=== PATIENT | male | born 1940 | race African-American/Black ===

== ENCOUNTER → 2019-11-11 | Outpatient (CLI) | payer MEDICARE, BC ==
[~2019-11-11] VITALS: Ht 172.7 cm; Wt 101.2 kg
[~2019-11-11] MED LIST: ACETAMINOPHEN325 M1 PO; ALDACTONE25 MG PO; ALLEGRA ALLERG180 MG PO; ALLOPURINOL 10100 M1 PO; ASPIR 8181 MG PO; ASPIRIN EC325 M1 PO; CARVEDILOL12.5 MG PO; CARVEDILOL3.125 MG PO; CENTRUM SILVER1 EAC2 PO; COQ-10100 MG PO; COZAAR 25 MG TA25 M2 PO; EFFIENT10 MG PO; FLOVENT HFA 4444 MCG INH; GLUCOPHAGE XR500 MG PO; GLUCOPHAGE500 MG PO; IMDUR 30 MG TAB30 M1 PO; ISOSORBIDE MONO30 M1 PO; K-DUR 20 MEQ T20 MEQ PO; KLOR-CON 1010 MEQ PO; LASIX 40 MG TAB40 M1 PO; LIPITOR40 MG PO; LOPRESSOR 50 MG50 M1 PO; METOLAZONE 2.52.5 MG PO; MEXILETINE 150150 MG PO; NITROGLYCERIN0.4 MG SUBLING; OMEPRAZOLE 20 M20 M1 PO; PACERONE 200 M200 M1 PO; PANTOPRAZOLE SO40 M1 PO; PRILOSEC20 MG PO; TAMSULOSIN HCL0.4 M1 PO; TOPROL XL50 MG PO; TRAMADOL 50 MG50 MG PO; TRICOR48 MG PO
[2019-11-11 09:44] LABS: HEMATOCRIT 39.5 % (42.0-52.0); HEMOGLOBIN 13.4 gm/dL (14.0-18.0); MCH 29.9 pg (26.0-34.0); MCHC 33.9 g/dL (28.0-37.0); MPV 7.9 fl. (7.2-11.1); RBC 4.49 mil/uL (4.50-6.00); RDW-CV 15.9 % (10.5-14.5); WBC 6.5 thou/uL (4.0-11.0)
[2019-11-11 09:52] LABS: APTT 26.7 Seconds (25.0-31.3); INR 1.1; PROTIME 11.2 Seconds (9.20-11.50)
[2019-11-11 09:54] LABS: ANION GAP 8 mmol/L (7-16); BUN 42 mg/dL (7-18); CALCIUM 9.8 mg/dL (8.5-10.1); CHLORIDE 98 mmol/L (98-107); CO2 31 mmol/L (21-32); CREATININE 2.3 mg/dL (0.6-1.3); GLUCOSE 118 mg/dL (70-99); POTASSIUM 3.1 mmol/L (3.5-5.1); SODIUM 137 mmol/L (136-145)
[2019-11-11 09:58] LABS: ALBUMIN 4.2 g/dL (3.4-5.0); ALKALINE PHOSPHATASE 82 U/L (46-116); CHOLESTEROL 136 mg/dL (<200); HDL CHOLESTEROL 44 mg/dL (>40); LDL CHOLESTEROL 57 mg/dL (<100); SERUM ASSESSMENT Clear; SGOT 24 U/L (15-37); SGPT 33 U/L (30-65); TC:HDL 3.1 Ratio (Not establshd); TOTAL BILIRUBIN 0.6 mg/dL (<0.1-1.0); TRIGLYCERIDE 179 mg/dL (<150); VLDL 36 mg/dL (<40)
[2019-11-11 11:47] VITALS: BP 101/61
[2019-11-11 12:00] VITALS: BP 102/62
[2019-11-11 12:14] VITALS: BP 101/65
[2019-11-11 12:47] VITALS: BP 105/64
--- NOTE | 2019-11-11 15:29 | EKG ---
[place] [address] ELECTROCARDIOGRAM REPORT Name: LUCA HGUO Room: [facility]#: [id number] Admission: 11/11/19 Attend Phys: Keith Downs, Discharge: Date of : 44 Date of Service: 11/11/1944 Report #: [id number] THIS REPORT FOR: //name// [facility] Test Date: 2019-11-11 Test Time: 09:46:31 Pat Name: LUCA HUGO Department: Room: Gender: Drapery Maker: : 1940 Requested By: Keith Downs Order Number: [id number] Reading MD: Keith oDwns Measurements Intervals [place] Rate: 60 P: MT: 178 QRS: -30 QRSD: 120 T: 98 QT: 486 QTc: 486 Interpretive Statements Atrial-paced delayDelayed R wave progression Borderline repolarization abnormality Baseline wander in lead(s) II,III,aVR,aVF No previous ECG available for comparison Electronically Signed On 11-11-2019 15:29:09 CDT by Keith Downs [email or web address] <ELECTRONICALLY SIGNED> By: Keith Downs MD, FAC 11/11/19 1529 Keith Downs MD, [facility] /EPI
--- NOTE | 2019-11-15 15:36 | CARD ---
[address] [address] CARDIAC CATH REPORT Name: LUCA HUGO Gregor Room: [facility]#: [id number] Admission: 11/11/19 Attend Phys: Keith Downs MD Discharge: Date of : 44 Report #: [id number] THIS REPORT FOR: //name// cc: Keith Rhodes MD, Michael B. MD ~ ADDENDUM APPROVED REPORT Study performed: 11/11/2019 10:51:24 Patient Status: Out-Patient Room #: Event Personnel: Keith Downs Automotive Detailer, Selma Hodge RN Gunner'S Mate G, Janet Long RN Monitor, Crescencio Aviles MORTGAGE LOAN COORDINATOR Scrub, José Luis Obrien MORTGAGE LOAN COORDINATOR Monitor Exam: Dual-chamber ICD generator change. Indications: Existing dual-chamber ICD generator at elective replacement. The patient is a 78 year-old male with a history of Ischemic cardiomyopathy status post ICD placement for primary prevention. Patient Info Last EF%: 25% Date: Conscious Sedation Start time: 1106 End Time: 1130 Fentanyl 50 mcg Versed 2 mg Implanted Devices: Medtronic ICDDR [id number] Primo MRI, serial number [id number] dual-chamber ICD pulse generator. Explanted Devices: Medtronic ICD [id number] Protecta XT US MR DF4 dual-chamber pulse generator. Procedure The patient underwent informed consent. We discussed the details of the procedure including the risks, which include, but not limited to bleeding, infection, vascular damage, cardiac perforation, and pneumothorax. After informed consent was obtained the patient was brought to the cardiac catheterization lab. The area of the left chest was prepped and draped in sterile fashion. Local anesthesia was achieved with 1% lidocaine. Once the area over the existing ICD generator was adequately anesthetized and incision was made. The generator was then explanted using electrocautery and blunt [place] [address] CARDIAC CATH REPORT Name: LUCA HUGO [facility] [id number] Admission: 11/11/19 Attend Phys: Keith Downs MD Discharge: Date of : 44 Report #: [id number] generator was detached from the atrial and pacing ICD ventricular leads. The pocket was flushed with antibiotic solution. A new dual-chamber pacing ICD generator was attached to the atrial and pacing/ICD lead. The device and redundant lead were then placed within the existing pocket. The deep tissues were closed with interrupted stitches of 2-0 Vicryl. The skin incision was then closed with a single subcuticular stitch of 4-0 Vicryl. The patient tolerated the procedure well without complication. Patient was returned to [facility] in recovery area in stable condition. Electrode Parameters P Wave: 1.9 mV R Wave: 15 mV Atrial Threshold: 0.75 V at 0.40 ms Ventricular Threshold: 1 V at 0.40 ms Atrial Resistance: 456 ohms Ventricular Resistance: 399 ohms Conclusion 1. ICD generator at elective replacement. 2. Successful replacement of a dual-chamber ICD generator without complication. Recommendations 1. Follow-up ICD site check in 1 week. 2. Follow-up ICD interrogation in 1 to 2 months. <ELECTRONICALLY SIGNED> By: Keith Downs MD, [facility] 11/15/19 1535 1535 [id number] Downs MD, [facility] /INF
== END ==
LOC: M.CL 08:59
PROVIDERS: ATTEND Internal Medicine Cardiovascular Disease
DX: Z45.02 Encounter for adjustment and management of automatic implantable cardiac defibrillator (principal); I25.5 Ischemic cardiomyopathy; I25.119 Atherosclerotic heart disease of native coronary artery with unspecified angina pectoris; I11.0 Hypertensive heart disease with heart failure; I50.22 Chronic systolic (congestive) heart failure; E78.2 Mixed hyperlipidemia; I47.2 Ventricular tachycardia; I34.8 Other nonrheumatic mitral valve disorders; Z95.810 Presence of automatic (implantable) cardiac defibrillator; Z79.899 Other long term (current) drug therapy; Z98.890 Other specified postprocedural states; Z82.49 Family history of ischemic heart disease and other diseases of the circulatory system; Z79.82 Long term (current) use of aspirin